=== PATIENT | female | born 1950 | race Caucasian/White ===

== ENCOUNTER 2017-11-11 10:14 | Day surgery (SDC) | payer OTHER ==
[2017-11-11] MEDS ORDERED: DEXAMETHASONE 4 MG/ML 1 ML INJ (12:02)
[2017-11-11] MEDS ORDERED: PROPOFOL 20 ML (12:02)
[2017-11-11] MEDS ORDERED: MIDAZOLAM 1 MG/ML 2 ML INJ (12:02)
[2017-11-11] MEDS ORDERED: FENTAnyl 50 MCG/ML VIAL ×2 (12:02→14:10)
[2017-11-11] MEDS ORDERED: ONDANSETRON 4 MG INJ (12:02)
[2017-11-11] MEDS ORDERED: NEOSTIGMINE 3 MG/3 ML SYRINGE (12:02)
[2017-11-11] MEDS ORDERED: CEFAZOLIN 1 GM INJ (12:02)
[2017-11-11] MEDS ORDERED: ROCURONIUM 50 MG INJ (12:02)
[2017-11-11] MEDS ORDERED: GLYCOPYRROLATE 0.4 MG INJ (12:02)
[2017-11-11] MEDS ORDERED: OXYCODONE/ACETAMINOPHEN (5/325) TAB PO ×2 (13:00)
[2017-11-11] MEDS ORDERED: ALBUTEROL 0.083% (NEB) 2.5 MG/3 ML AMP HHN (13:00)
[2017-11-11] MEDS ORDERED: IPRATROPIUM (NEB) 0.5 MG/2.5 ML AMP HHN (13:00)
[2017-11-11] MEDS ORDERED: EPHEDrine SULFATE 50 MG/5 ML SYG IV (13:00)
[2017-11-11] MEDS ORDERED: HYDROmorphONE 1 MG/5 ML IV SYRINGE IV ×3 (13:00)
[2017-11-11] MEDS ORDERED: LABETALOL HCL 20MG INJ IV (13:00)
[2017-11-11] MEDS ORDERED: FENTAnyl 50 MCG/ML VIAL IV ×3 (13:00)
[2017-11-11] MEDS ORDERED: MEPERIDINE 25 MG INJ IV (13:00)
[2017-11-11] MEDS ORDERED: TRIMETHOBENZAMIDE 100 MG/ML VIAL IM (13:00)
[2017-11-11] MEDS ORDERED: MIDAZOLAM 1 MG/ML 2 ML INJ IV (13:00)
[2017-11-11] MEDS ORDERED: DIPHENHYDRAMINE 50 MG INJ IV (13:00)
[2017-11-11] MEDS: IOHEXOL 300MG/ML 30 ML BTL (13:18)
[2017-11-11] MEDS: METHYLENE BLUE 1% 10 ML INJ (13:35)
[2017-11-11] MEDS: hydrALAzine 20 MG INJ IV (14:45)
[2017-11-11] MEDS: ONDANSETRON 4 MG INJ IV ×2 (14:58→15:44)
[2017-11-11] MEDS ORDERED: HYDROCODONE/APAP (5/325) TAB PO (15:00)
== END 2017-11-11 16:41 | disposition home or self-care (01) ==
LOC: SDS 10:14
DX: N20.1 Calculus of ureter (principal); E11.9 Type 2 diabetes mellitus without complications; I48.0 Paroxysmal atrial fibrillation; I10 Essential (primary) hypertension; Z95.0 Presence of cardiac pacemaker
CPT/HCPCS: 52356; 74420; 82962; 87086; 88300